=== PATIENT | male | born 1980 | race African-American/Black ===

== ENCOUNTER 2018-06-26 06:41 | Emergency (ER) | payer MEDICAID ==
[~2018-06-26] VITALS: Ht 175.3 cm; Wt 90.0 kg
[2018-06-26] MEDS ORDERED: IBUPROFEN 600MG TABLET PO ONE (09:45)
[2018-06-26 11:14] VITALS: BP 129/90
== END 2018-06-26 11:15 | disposition home or self-care (01) ==
LOC: ER 06:41
DX: S50.312A Abrasion of left elbow, initial encounter (principal); S50.02XA Contusion of left elbow, initial encounter; F17.210 Nicotine dependence, cigarettes, uncomplicated; V43.52XA Car driver injured in collision with other type car in traffic accident, initial encounter; Y93.89 Activity, other specified; Y92.488 Other paved roadways as the place of occurrence of the external cause
CPT/HCPCS: 73080; 99283; Z7610